=== PATIENT | female | born 1995 | race Caucasian/White ===

== ENCOUNTER 2017-12-06 21:03 | Emergency (ER) | payer OTHER ==
--- NOTE | 2017-12-06 21:59 | UC ---
Throat Pain/Nasal Juvencio HPI - HPI Summary HPI Summary: 2.5 weeks of sore throat, persistent sinus drainage, increasing headache, fatigue and now low grade fever x 2 days. - History of Current Complaint Chief Complaint: UCRespiratory Stated Complaint: SORE THROAT Time Seen by Provider: 12/06/17 21:51 Hx Obtained From: Patient Hx Last Menstrual Period: 11/29 ?: No Onset/Duration: Gradual Onset, Lasting Days Severity: Moderate Pain Intensity: 8 Cough: Nonproductive Associated Signs & Symptoms: Positive: Dysphagia, Sinus Discomfort, Nasal Discharge, Fever - Epiglottits Risk Factors Epiglottis Risk Factors: Negative - Allergies/Home Medications Allergies/Adverse Reactions: Allergies Allergy/AdvReac Type Severity Reaction Status Date / Time Sulfa (Sulfonamide Allergy Itching Verified 12/06/17 21:21 Antibiotics) MS Sulfa Drugs [Sulfa Drugs] AdvReac Intermediate Itching Verified 09/12/12 14: 16 Home Medications: Home Medications O C 1 tab PO QPM 12/06/17 [History] Sertraline* [Zoloft*] 100 mg PO DAILY 12/06/17 [History Confirmed 12/06/17] PMH/Surg Hx/FS Hx/Imm Hx Previously Healthy: Yes Psychological History: Depression - treated x 3 years. - Surgical History Surgical History: None - Family History Known Family History: Positive: Hypertension - father - Social History Occupation: Employed Full-time - captain waiter/waitress Alcohol Use: Occasionally Substance Use Type: None Smoking Status (MU): Former Smoker Review of Systems Constitutional: Fever, Fatigue Skin: Negative Eyes: Negative ENT: Sore Throat, Nasal Discharge, Sinus Congestion Respiratory: Cough Cardiovascular: Negative Gastrointestinal: Negative Genitourinary: Negative Motor: Negative Neurovascular: Negative Musculoskeletal: Negative Neurological: Negative Psychological: Negative Is Patient Immunocompromised?: No All Other Systems Reviewed And Are Negative: Yes Physical Exam Triage Information Reviewed: Yes Appearance: Ill-Appearing - congested, mildly unwell Vital Signs: Initial Vital Signs Temp 100.1 F 12/06/17 21:12 Pulse 99 12/06/17 21:12 Resp 20 12/06/17 21:12 BP 140/91 12/06/17 21:12 Pulse Ox 100 12/06/17 21:12 Eyes: Positive: Conjunctiva Clear ENT: Positive: Pharyngeal erythema, TMs normal Neck: Positive: Supple, Nontender, No Lymphadenopathy Respiratory: Positive: No respiratory distress, Rhonchi - coarse breath sounds Cardiovascular: Positive: RRR, No Murmur Musculoskeletal Exam: Normal Neurological Exam: Normal Neurological: Positive: Alert Psychological Exam: Normal Throat Pain/Nasal Course/Dx - Course Course Of Treatment: amoxicillin for acute sinusitis. - Differential Dx/Diagnosis Differential Diagnosis/HQI/PQRI: Pharyngitis, Sinusitis, Tonsillitis, URI Provider Diagnoses: acute sinusitis Discharge - Sign-Out/Discharge Documenting (check all that apply): Discharge/Admit/Transfer - Discharge Plan Condition: Stable Disposition: HOME Prescriptions: Amoxicillin PO (*) [Amoxicillin 875 MG (*)] 875 mg PO BID #14 tab Patient Education Materials: Sinusitis (ED) Referrals: Rosetta Tong NP [Primary Care Provider] - Additional Instructions: take amoxicillin as directed for treatment of sinusitis. You might use flonase (fluticasone) nose spray 2 sprays to both nostrils once daily to help to relieve drainage and consequently cough. Use ibuprofen as needed for headache. - Billing Disposition and Condition Condition: STABLE Disposition: Home
[2017-12-06] MEDS ORDERED: Amoxicillin PO (*) 500 MG CAP PO ONE (22:00)
== END 2017-12-06 22:09 | disposition home or self-care (01) ==
LOC: UCCORT 21:03
DX: J01.90 Acute sinusitis, unspecified (principal); Z88.2 Allergy status to sulfonamides; Z88.8 Allergy status to other drugs, medicaments and biological substances; F32.9 Major depressive disorder, single episode, unspecified; Z87.81 Personal history of (healed) traumatic fracture; Z87.891 Personal history of nicotine dependence
CPT/HCPCS: 87651; 99202; A9270-GY; G0463

== ENCOUNTER 2018-03-08 19:04 | Emergency (ER) | payer OTHER ==
[2018-03-08 20:06] VITALS: BP 131/66
--- NOTE | 2018-03-08 20:58 | UC ---
UC General HPI - HPI Summary HPI Summary: Patient is complaining of a one-week history of sore throat, headache and ear pressure. She does to having a cough, body aches and some chills as well. She' s never had mono. - History of Current Complaint Chief Complaint: UCRespiratory Stated Complaint: ST/BILAT EAR PAIN/HEADACHE Time Seen by Provider: 03/08/18 20:48 Hx Obtained From: Patient Hx Last Menstrual Period: 03/06/18 Onset/Duration: Gradual Onset Timing: Constant Pain Intensity: 10 Associated Signs & Symptoms: Positive: Cough - Allergy/Home Medications Allergies/Adverse Reactions: Allergies Allergy/AdvReac Type Severity Reaction Status Date / Time amoxicillin Allergy Unknown Rash Verified 03/08/18 19:59 Sulfa (Sulfonamide Allergy Itching Verified 12/06/17 21:21 Antibiotics) PMH/Surg Hx/FS Hx/Imm Hx Psychological History: Depression - Surgical History Surgical History: None - Family History Known Family History: Positive: Hypertension - father - Social History Occupation: Student Lives: Dormitory/Roommates Alcohol Use: Occasionally Substance Use Type: None Smoking Status (MU): Former Smoker - Immunization History Vaccination Up to Date: Yes Review of Systems Constitutional: Chills, Fatigue Skin: Negative Eyes: Negative ENT: Sore Throat, Ear Ache, Sinus Congestion Respiratory: Cough Cardiovascular: Negative Gastrointestinal: Negative Genitourinary: Negative Motor: Negative Neurovascular: Negative Musculoskeletal: Myalgia Neurological: Negative Psychological: Negative Is Patient Immunocompromised?: No All Other Systems Reviewed And Are Negative: Yes Physical Exam Triage Information Reviewed: Yes Appearance: Well-Appearing Vital Signs: Initial Vital Signs Temp 98.4 F 03/08/18 20:00 Pulse 81 03/08/18 20:00 Resp 16 03/08/18 20:00 BP 131/66 03/08/18 20:00 Pulse Ox 100 03/08/18 20:00 Vital Signs Reviewed: Yes Eyes: Positive: Conjunctiva Clear ENT: Positive: Pharyngeal erythema, TMs normal, Tonsillar exudate, Uvula midline. Negative: Nasal congestion, Nasal drainage, Trismus, Muffled voice, Hoarse voice Neck: Positive: Supple, Tenderness @ - Peritonsillar nodes, Enlarged Nodes @ - peritonsillar nodes Respiratory: Positive: Lungs clear, Normal breath sounds Cardiovascular: Positive: RRR, No Murmur Abdomen Description: Positive: Nontender, No Organomegaly, Soft Bowel Sounds: Positive: Present Musculoskeletal: Positive: ROM Intact Neurological: Positive: Alert Psychological: Positive: Age Appropriate Behavior Skin Exam: Normal Diagnostics - Laboratory Diagnostic Studies Completed/Ordered: rapid strep=positive Course/Dx - Differential Dx - Multi-Symptom Provider Diagnoses: Strep throat Discharge - Sign-Out/Discharge Documenting (check all that apply): Patient Departure All imaging exams completed and their final reports reviewed: No Studies - Discharge Plan Condition: Stable Disposition: HOME Patient Education Materials: Strep Throat (ED) Referrals: Rosetta Tong NP [Primary Care Provider] - 7 Days - Billing Disposition and Condition Condition: STABLE Disposition: Home
[2018-03-08] MEDS ORDERED: Azithromycin TAB* 250 MG PO ONE (21:16)
== END 2018-03-08 21:25 | disposition home or self-care (01) ==
LOC: UCCORT 19:04
DX: J02.0 Streptococcal pharyngitis (principal); Z88.1 Allergy status to other antibiotic agents; Z88.0 Allergy status to penicillin; Z87.891 Personal history of nicotine dependence
CPT/HCPCS: 87651; 99212; A9270-GY; G0463

== ENCOUNTER 2019-01-21 21:15 | Emergency (ER) | payer OTHER ==
[2019-01-21 21:56] VITALS: BP 132/72
[2019-01-21] MEDS ORDERED: Azithromycin TAB* 250 MG PO ONE (22:09)
[2019-01-21] MEDS ORDERED: Benzonatate CAP* 100 MG PO ONE (22:09)
--- NOTE | 2019-01-21 22:11 | UC ---
Respiratory Complaint HPI - HPI Summary HPI Summary: 23 yo female with cough x 10 days initially had sinus type symptoms but this resolve mild sore throat gags on phlegm and some times vomits diarrhea x 4 today no fever or chills - History of Current Complaint Chief Complaint: UCGeneralIllness Stated Complaint: COUGH,SORE THROAT,HEAD & BODY ACHES, VOMITING Time Seen by Provider: 01/21/19 22:02 Hx Obtained From: Patient Hx Last Menstrual Period: 01/06/19 Onset/Duration: Gradual Onset, Lasting Days Timing: Constant Severity Initially: Mild Severity Currently: Moderate Pain Intensity: 6 Pain Scale Used: 0-10 Numeric Character: Cough: Productive Aggravating Factors: Nothing Alleviating Factors: Nothing Associated Signs And Symptoms: Positive: Nasal Congestion. Negative: Dyspnea, Fever, Chills, Pleuritic Chest Pain, Wheezing, Hemoptysis, Dizziness, Calf Pain , Calf Swelling, Edema, URI, Hoarseness, Sinus Discomfort - Risk Factors Pulmonary Embolism Risk Factors: Negative - Allergies/Home Medications Allergies/Adverse Reactions: Allergies Allergy/AdvReac Type Severity Reaction Status Date / Time amoxicillin Allergy Unknown Rash Verified 01/21/19 21:46 Sulfa (Sulfonamide Allergy Itching Verified 01/21/19 21:46 Antibiotics) Home Medications: Home Medications Bcp 1 tab PO BEDTIME 01/21/19 [History Confirmed 01/21/19] Bismuth Subsalicylate [Pepto Bismol] 262 mg PO DAILY PRN 01/21/19 [History Confirmed 01/21/19] D-Methorphan/PE/Acetaminophen [Daytime Cold Multi-Symp Gelcap] 1 each PO DAILY PRN 01/21/19 [History Confirmed 01/21/19] PMH/Surg Hx/FS Hx/Imm Hx Previously Healthy: Yes - Surgical History Surgical History: None - Family History Known Family History: Positive: Hypertension - father - Social History Alcohol Use: Occasionally Substance Use Type: None Smoking Status (MU): Former Smoker - Immunization History Vaccination Up to Date: Yes Review of Systems All Other Systems Reviewed And Are Negative: Yes Constitutional: Positive: Fatigue ENT: Positive: Sore Throat, Nasal Discharge, Sinus Congestion, Sinus Pain/ Tenderness Respiratory: Positive: Cough Gastrointestinal: Positive: Vomiting, Diarrhea Genitourinary: Positive: Negative Motor: Positive: Negative Neurovascular: Positive: Negative Musculoskeletal: Positive: Negative Neurological: Positive: Headache - mild Psychological: Positive: Negative Physical Exam Triage Information Reviewed: Yes Appearance: Well-Appearing, No Pain Distress, Well-Nourished Vital Signs: Initial Vital Signs Temp 98.4 F 01/21/19 21:52 Pulse 86 01/21/19 21:52 Resp 16 01/21/19 21:52 BP 132/72 01/21/19 21:52 Pulse Ox 100 01/21/19 21:52 Vital Signs Reviewed: Yes Eyes: Positive: Conjunctiva Clear ENT: Positive: Hearing grossly normal, Pharyngeal erythema, Nasal congestion, TMs normal, Uvula midline. Negative: Nasal drainage, TM dull, TM red, Tonsillar swelling, Tonsillar exudate, Trismus, Muffled voice, Hoarse voice, Dental tenderness, Sinus tenderness Dental Exam: Normal Neck: Positive: Supple, Nontender, No Lymphadenopathy Respiratory: Positive: Normal breath sounds, No respiratory distress, No accessory muscle use, Other: - bronchospastic cough Cardiovascular: Positive: RRR, No Murmur Musculoskeletal: Positive: ROM Intact, No Edema Neurological: Positive: Alert Psychological Exam: Normal Skin Exam: Normal Respiratory Course/Dx - Differential Dx/Diagnosis Provider Diagnosis: Acute bronchitis Discharge - Sign-Out/Discharge Documenting (check all that apply): Patient Departure All imaging exams completed and their final reports reviewed: No Studies - Discharge Plan Condition: Stable Disposition: HOME Prescriptions: Azithromycin TAB* [Zithromax TAB*] 250 mg PO DAILY #4 tab Benzonatate CAP* [Tessalon CAP*] 100 - 200 mg PO TID PRN #28 cap PRN Reason: Cough Patient Education Materials: Acute Bronchitis (ED) Referrals: Rosetta Tong NP [Primary Care Provider] - 3 Days Additional Instructions: rest fluids recheck for new or worsening symptoms see your provider later this week for recheck - Billing Disposition and Condition Condition: STABLE Disposition: Home
== END 2019-01-21 22:25 | disposition home or self-care (01) ==
LOC: UCCORT 21:15
DX: J98.01 Acute bronchospasm (principal); Z87.891 Personal history of nicotine dependence
CPT/HCPCS: 99212; A9270-GY; G0463

== ENCOUNTER 2019-07-24 19:41 | Emergency (ER) | payer OTHER ==
[2019-07-24 20:06] VITALS: BP 132/78
--- NOTE | 2019-07-24 20:32 | UC ---
Throat Pain/Nasal Juvencio HPI - HPI Summary HPI Summary: 24 yo female with nasal gestion/post nasal drrip and cough x 6 weeks febrile at times has vomited twice gagging on phelgm - History of Current Complaint Chief Complaint: UCRespiratory Stated Complaint: COUGH, CONGESTION Time Seen by Provider: 07/24/19 20:04 Hx Obtained From: Patient Hx Last Menstrual Period: 07/11/19 Onset/Duration: Gradual Onset, Lasting Weeks Severity: Mild Pain Intensity: 0 Pain Scale Used: 0-10 Numeric Cough: Productive Associated Signs & Symptoms: Positive: Sinus Discomfort, Nasal Discharge Related History: Seasonal Allergies - Allergies/Home Medications Allergies/Adverse Reactions: Allergies Allergy/AdvReac Type Severity Reaction Status Date / Time amoxicillin Allergy Unknown Rash Verified 07/24/19 20:06 Sulfa (Sulfonamide Allergy Itching Verified 07/24/19 20:06 Antibiotics) Home Medications: Home Medications Ibuprofen TAB* [Motrin TAB* 600 MG] 600 mg PO ONCE PRN 07/24/19 [History Confirmed 07/24/19] PMH/Surg Hx/FS Hx/Imm Hx Previously Healthy: Yes - Surgical History Surgical History: None - Family History Known Family History: Positive: Hypertension - father - Social History Alcohol Use: Occasionally Substance Use Type: None Smoking Status (MU): Former Smoker - Immunization History Vaccination Up to Date: Yes Review of Systems All Other Systems Reviewed And Are Negative: Yes Constitutional: Positive: Negative Skin: Positive: Negative Eyes: Positive: Negative ENT: Positive: Nasal Discharge, Sinus Congestion, Sinus Pain/Tenderness Respiratory: Positive: Cough Cardiovascular: Positive: Negative Gastrointestinal: Positive: Negative Genitourinary: Positive: Negative Motor: Positive: Negative Neurovascular: Positive: Negative Musculoskeletal: Positive: Negative Neurological: Positive: Negative Psychological: Positive: Negative Physical Exam Triage Information Reviewed: Yes Appearance: Well-Appearing, No Pain Distress, Well-Nourished Vital Signs: Initial Vital Signs Temp 99 F 07/24/19 20:01 Pulse 95 07/24/19 20:01 Resp 18 07/24/19 20:01 BP 132/78 07/24/19 20:01 Pulse Ox 100 07/24/19 20:01 Vital Signs Reviewed: Yes Eyes: Positive: Conjunctiva Clear ENT: Positive: Hearing grossly normal, Nasal congestion, Nasal drainage, Sinus tenderness, Uvula midline. Negative: Tonsillar swelling, Tonsillar exudate Dental Exam: Normal Neck: Positive: Supple, Nontender, No Lymphadenopathy Respiratory Exam: Normal Respiratory: Positive: Lungs clear, Normal breath sounds, No respiratory distress, No accessory muscle use Cardiovascular: Positive: RRR, No Murmur Musculoskeletal: Positive: ROM Intact, No Edema Neurological: Positive: Alert Psychological Exam: Normal Skin Exam: Normal Throat Pain/Nasal Course/Dx - Differential Dx/Diagnosis Provider Diagnosis: Acute sinusitis Discharge ED - Sign-Out/Discharge Documenting (check all that apply): Patient Departure All imaging exams completed and their final reports reviewed: No Studies - Discharge Plan Condition: Stable Disposition: HOME Prescriptions: DOXYcycline CAP(*) [DOXYcycline 100MG CAP(*)] 100 mg PO BID #14 cap Fluticasone NASAL SPRAY 50MCG* [Flonase NASAL SPRAY 50MCG*] 2 spray BOTH NARES BID #1 btl Patient Education Materials: Sinusitis (ED) Referrals: Rosetta Tong NP [Primary Care Provider] - Additional Instructions: saline nasal spray two sprays each nostril twice daily follow this with 2 sprays flonase each nostril twice daily warm facial compresses recheck next week if not better - Billing Disposition and Condition Condition: STABLE Disposition: Home
== END 2019-07-24 20:42 | disposition home or self-care (01) ==
LOC: UCCORT 19:41
DX: J01.90 Acute sinusitis, unspecified (principal); R05 Cough; Z87.891 Personal history of nicotine dependence; Z88.0 Allergy status to penicillin; Z88.2 Allergy status to sulfonamides
CPT/HCPCS: 99212; G0463

== ENCOUNTER 2019-09-07 13:41 | Emergency (ER) | payer OTHER ==
[2019-09-07 14:09] VITALS: BP 132/83
--- NOTE | 2019-09-07 14:45 | UC ---
Throat Pain/Nasal Juvencio HPI - HPI Summary HPI Summary: 24 yo female presents with sinus symptoms. She tells me that over the last month she has had sinus pain/pressure/congestion. She was seen about 2 months ago with same symptoms and prescribed doxycycline. She took this full course and states her symptoms improved, but never fully went away. She has not been taking anything OTC for her symptoms. Denies fever, chills, sore throat, cough, SOB, abdominal pain, n/v. - History of Current Complaint Chief Complaint: UCRespiratory Stated Complaint: CONGESTION, COUGH Time Seen by Provider: 09/07/19 14:44 Hx Obtained From: Patient Hx Last Menstrual Period: 08/21/19 Pain Intensity: 0 - Allergies/Home Medications Allergies/Adverse Reactions: Allergies Allergy/AdvReac Type Severity Reaction Status Date / Time amoxicillin Allergy Unknown Rash Verified 09/07/19 14:06 Sulfa (Sulfonamide Allergy Itching Verified 09/07/19 14:06 Antibiotics) Home Medications: Home Medications Sertraline* [Zoloft*] 100 mg PO DAILY 12/06/17 [History Confirmed 09/07/19] Bcp 1 tab PO BEDTIME 01/21/19 [History Confirmed 09/07/19] Azithromycin TAB* [Zithromax TAB (Z-RENETTA) 250 mg #6 tabs] 2 tab PO .TODAY, THEN 1 DAILY #1 renetta 09/07/19 [Rx] Fluticasone NASAL SPRAY 50MCG* [Flonase NASAL SPRAY 50MCG*] 2 spray BOTH NARES DAILY #1 btl 09/07/19 [Rx] guaiFENesin ER TAB [Mucinex*] 600 mg PO BID #20 tab.er 09/07/19 [Rx] PMH/Surg Hx/FS Hx/Imm Hx Psychological History: Anxiety, Depression - Surgical History Surgical History: None - Family History Known Family History: Positive: Hypertension - father - Social History Lives: With Family Alcohol Use: Occasionally Substance Use Type: None Smoking Status (MU): Former Smoker - Immunization History Vaccination Up to Date: Yes Review of Systems All Other Systems Reviewed And Are Negative: No Constitutional: Positive: Negative Skin: Positive: Negative Eyes: Positive: Negative ENT: Positive: Nasal Discharge, Sinus Congestion, Sinus Pain/Tenderness Respiratory: Positive: Negative Cardiovascular: Positive: Negative Gastrointestinal: Positive: Negative Neurological/Mental Status: Positive: Negative Psychological: Positive: Negative Physical Exam - Summary Physical Exam Summary: GENERAL: NAD. WDWN. No pain distress. SKIN: No rashes, sores, lesions, or open wounds. HEENT: Head: AT/NC Eyes: EOM intact. Conjunctiva clear without inflammation or discharge. Ears: Hearing grossly normal. TMs intact, no bulging, erythema, or edema. Nose: Nasal mucosa mildly swollen and erythematous with yellow/ clear discharge. TTP maxillary and frontal sinus. Positive post nasal drip Throat: Posterior oropharynx without exudates, erythema, or tonsillar enlargement. Uvula midline. NECK: Supple. Nontender. No lymphadenopathy. CHEST: CTAB. No r/r/w. No accessory muscle use. Breathing comfortably and in no distress. CV: RRR. Pulses intact. NEURO: Alert. PSYCH: Age appropriate behavior. Triage Information Reviewed: Yes Vital Signs: Initial Vital Signs Temp 98.1 F 09/07/19 14:06 Pulse 88 09/07/19 14:06 Resp 16 09/07/19 14:06 BP 132/83 09/07/19 14:06 Pulse Ox 100 09/07/19 14:06 Vital Signs Reviewed: Yes Throat Pain/Nasal Course/Dx - Course Course Of Treatment: Sinusitis - Differential Dx/Diagnosis Provider Diagnosis: Sinusitis Discharge ED - Sign-Out/Discharge Documenting (check all that apply): Patient Departure All imaging exams completed and their final reports reviewed: No Studies - Discharge Plan Condition: Stable Disposition: HOME Prescriptions: Azithromycin TAB* [Zithromax TAB (Z-RENETTA) 250 mg #6 tabs] 2 tab PO .TODAY, THEN 1 DAILY #1 renetta Fluticasone NASAL SPRAY 50MCG* [Flonase NASAL SPRAY 50MCG*] 2 spray BOTH NARES DAILY #1 btl guaiFENesin ER TAB [Mucinex*] 600 mg PO BID #20 tab.er Patient Education Materials: Sinusitis (ED) Referrals: Rosetta Tong NP [Primary Care Provider] - - Billing Disposition and Condition Condition: STABLE Disposition: Home
== END 2019-09-07 14:56 | disposition home or self-care (01) ==
LOC: UCCORT 13:41
DX: J32.9 Chronic sinusitis, unspecified (principal); F32.9 Major depressive disorder, single episode, unspecified; Z87.891 Personal history of nicotine dependence; Z79.899 Other long term (current) drug therapy; Z88.0 Allergy status to penicillin; Z88.2 Allergy status to sulfonamides
CPT/HCPCS: 99212; G0463